=== PATIENT | female | born 1955 | race Caucasian/White ===

== ENCOUNTER 2017-08-25 01:20 | Inpatient (IN) | payer OTHER ==
[2017-08-25] VITALS (9 sets, daily range): BP systolic 109–171; BP diastolic 67–82; PULSE 73–94; RESP 16–18; TEMP 97.5–98.9; O2SAT 93–99
[~2017-08-25] VITALS: Ht 165.1 cm; Wt 49.5 kg
[2017-08-25] MEDS ORDERED: SIMV20TA PO (01:51)
[2017-08-25] MEDS ORDERED: MORPHINE SULFATE 2 MG/ML INJ IV PUSH ONE ×2 (02:00→02:30)
--- NOTE | 2017-08-25 02:23 | RADRPT ---
EXAM DATE/TIME: 08/25/2017 02:07 [facility] COMPARISON: No previous studies available for comparison. INDICATIONS : Left shoulder pain post fall MEDICAL HISTORY : None. SURGICAL HISTORY : None. ENCOUNTER: Initial ACUITY: 1 day PAIN SCORE: 8/10 LOCATION: Left Shoulder FINDINGS: There is a angulated oblique fracture through the proximal shaft of the humerus with lateral angulati on of the distal fracture fragment. The humeral head remains normal in alignment with the glenoid on both the frontal and transscapular Y-view. The visualized left upper ribs are intact. CONCLUSION: Angulated fracture of proximal shaft of the humerus. Jeremías Ramirez MD on August 25, 2017 at 2:21 Board Certified Radiologist. This report was verified electronically.
--- NOTE | 2017-08-25 02:24 | PD ---
HPI Chief Complaint: Fall Time Seen by Provider: 01:45 Travel History International Travel<30 days: No Contact w/Intl Traveler<30days: No Traveled to known affect area: No History of Present Illness HPI 62-year-old female here for evaluation of severe left shoulder pain after a fall. Patient admits to drinking alcohol tonight. She drinks alcohol a few days a week. She is unsure exactly how she fell. She denies pain anywhere else. She denies head or neck pain. No pain in any other joints or extremity. Left shoulder pain is severe, constant, worse with movement. No paresthesias. PFSH Past Medical History High Cholesterol: Yes Diminished Hearing: No Tetanus Vaccination: Unknown Influenza Vaccination: Yes ?: Not Menopausal: Yes Dilation and Curettage (D&C): Yes Social History Alcohol Use: Yes (on the weekends) Tobacco Use: Yes Substance Use: No Allergies-Medications (Allergen,Severity, Reaction): Coded Allergies: No Known Drug Allergies (Verified Allergy, Unknown, 08/25/17) Reported Meds & Prescriptions Reported Meds & Active Scripts Active Reported Simvastatin 20 Mg Tab 20 Mg PO DAILY Review of Systems Except as stated in HPI: all other systems reviewed are Neg Physical Exam Narrative GENERAL: Well-developed, well-nourished, awake, alert, no apparent distress. SKIN: Focused skin assessment warm/dry. Ecchymosis to left lateral/proximal arm /shoulder. No lacerations or open wounds. HEAD: Atraumatic. Normocephalic. EYES: Pupils equal and round. No scleral icterus. No injection or drainage. ENT: No nasal bleeding or discharge. Mucous membranes pink and moist. NECK: Trachea midline. No JVD. No midline vertebral step-off or tenderness per CARDIOVASCULAR: Regular rate and rhythm. Bilateral distal radial pulses are brisk and equal. RESPIRATORY: No accessory muscle use. Clear to auscultation. Breath sounds equal bilaterally. GASTROINTESTINAL: Abdomen soft, non-tender, nondistended. MUSCULOSKELETAL: Left shoulder with skin exam as above with diffuse edema and tenderness, limited range of motion secondary to pain. No clavicular step-off or tenderness. The rest of her joints and extremities are without deformity, without tenderness, with normal range of motion. The left upper extremity is neurovascularly intact in all compartments are supple. NEUROLOGICAL: Awake and alert. No obvious cranial nerve deficits. Motor grossly within normal limits. Normal speech. PSYCHIATRIC: Appropriate mood and affect; insight and judgment normal. Data Data Last Documented VS Vital Signs Date Time Temp Pulse Resp B/P (MAP) Pulse Ox O2 Delivery O2 Flow Rate FiO2 08/25/17 02:41 84 18 110/69 (83) 99 Room Air 08/25/17 01:29 97.5 Orders Orders Humerus (Min 2vws) (08/25/17 ) Shoulder, Complete (>2vws) (08/25/17 ) Ct Brain W/O Iv Contrast(Rout) (08/25/17 ) Ct Cerv Spine W/O Contrast (08/25/17 ) Morphine Inj (Morphine Inj) (08/25/17 02:00) Morphine Inj (Morphine Inj) (08/25/17 02:30) Basic Metabolic Panel (Bmp) (08/25/17 02:28) Complete Blood Count With Diff (08/25/17 02:28) Prothrombin Time / Inr (Pt) (08/25/17 02:28) Act Partial Throm Time (Ptt) (08/25/17 02:28) Iv Access Insert/Monitor (08/25/17 02:28) Ecg Monitoring (08/25/17 02:28) Oximetry (08/25/17 02:28) Sodium Chloride 0.9% Flush (Ns Flush) (08/25/17 02:30) Sodium Chlor 0.9% 1000 Ml Inj (Ns 1000 M (08/25/17 02:30) Sling And Swathe (08/25/17 ) Consult Orthopedic (08/25/17 ) (Hub Use Only)Inp Phy Cons/Ref (08/25/17 ) Labs Laboratory Tests Test 08/25/17 02:40 White Blood Count 12.5 TH/MM3 Red Blood Count 4.58 MIL/MM3 Hemoglobin 14.4 GM/DL Hematocrit 41.3 % Mean Corpuscular Volume 90.2 FL Mean Corpuscular Hemoglobin 31.4 PG Mean Corpuscular Hemoglobin Concent 34.8 % Red Cell Distribution Width 14.5 % Platelet Count 339 TH/MM3 Mean Platelet Volume 8.1 FL Neutrophils (%) (Auto) 73.4 % Lymphocytes (%) (Auto) 19.4 % Monocytes (%) (Auto) 4.3 % Eosinophils (%) (Auto) 1.7 % Basophils (%) (Auto) 1.2 % Neutrophils # (Auto) 9.1 TH/MM3 Lymphocytes # (Auto) 2.4 TH/MM3 Monocytes # (Auto) 0.5 TH/MM3 Eosinophils # (Auto) 0.2 TH/MM3 Basophils # (Auto) 0.2 TH/MM3 CBC Comment AUTO DIFF Differential Comment AUTO DIFF CONFIRMED Platelet Estimate NORMAL Platelet Morphology Comment ENLARGED Prothrombin Time 10.0 SEC Prothromb Time International Ratio 1.0 RATIO Activated Partial Thromboplast Time 21.2 SEC Blood Urea Nitrogen 9 MG/DL Creatinine 0.69 MG/DL Random Glucose 128 MG/DL Calcium Level 8.8 MG/DL Sodium Level 142 MEQ/L Potassium Level 4.0 MEQ/L Chloride Level 107 MEQ/L Carbon Dioxide Level 29.8 MEQ/L Anion Gap 5 MEQ/L Estimat Glomerular Filtration Rate 86 ML/MIN MDM Medical Decision Making Medical Screen Exam Complete: Yes Emergency Medical Condition: Yes Differential Diagnosis Proximal humerus fracture, shoulder contusion, dislocation, intracranial trauma , cervical spine injury Narrative Course Vital signs reviewed. Left shoulder and humerus x-rays show an angulated comminuted proximal humerus fracture. Case discussed with the on-call orthopedist Dr. Reina. The patient will be admitted to the medical service and he will evaluate her in the morning. CT head shows no acute intracranial abnormality, normal brain. CT cervical spine: CONCLUSION: 1. No evidence of compression deformity or spondylolisthesis. 2. Advanced discogenic degenerative changes at C6-7 and unilateral prominent hypertrophic changes in the right facets of mid and lower cervical spine. 3. Tonsillolith on the right side suggest chronic inflammatory process. Case discussed with hospitalist Dr. Ramirez who will admit the patient to her service. Diagnosis Primary Impression: Closed fracture of left proximal humerus Qualified Codes: S42.292A - Other displaced fracture of upper end of left humerus, initial encounter for closed fracture Admitting Information Admitting Physician Requests: Admit Jordon Espinoza MD Aug 25, 2017 02:24
--- NOTE | 2017-08-25 02:25 | RADRPT ---
EXAM DATE/TIME: 08/25/2017 02:10 [facility] COMPARISON: No previous studies available for comparison. INDICATIONS : Pain to left shoulder post fall tonight. MEDICAL HISTORY : None. SURGICAL HISTORY : None. ENCOUNTER: Initial ACUITY: 1 day PAIN SCORE: 8/10 LOCATION: Left Humerus FINDINGS: There is an angulated fracture of the proximal shaft of the humerus with moderate lateral angulation of the distal fracture fragment. The fracture line appears to be partially spiral. Possible linear extension to the base of the greater tuberosity. The no radiopaque foreign bodies. Visualized left lateral ribs are intact. CONCLUSION: Oblique, angulated fracture of the proximal humerus. Jeremías Ramirez MD on August 25, 2017 at 2:22 Board Certified Radiologist. This report was verified electronically.
--- NOTE | 2017-08-25 02:26 | RADRPT ---
EXAM DATE/TIME: 08/25/2017 02:01 [facility] COMPARISON: No previous studies available for comparison. INDICATIONS : Trauma; fall. RADIATION DOSE: 56.35 CTDIvol (mGy) MEDICAL HISTORY : Asthma SURGICAL HISTORY : D&C ENCOUNTER: Initial ACUITY: 1 day PAIN SCALE: 5/10 LOCATION: cranial TECHNIQUE: Multiple contiguous axial images were obtained of the head. Using automated exposure control and adj ustment of the mA and/or kV according to patient size, radiation dose was kept as low as reasonably a chievable to obtain optimal diagnostic quality images. DICOM format image data is available electro nically for review and comparison. FINDINGS: CEREBRUM: The ventricles are normal for age. No evidence of midline shift, mass lesion, hemorrhage or acute in farction. No extra-axial fluid collections are seen. POSTERIOR FOSSA: The cerebellum and brainstem are intact. The 4th ventricle is midline. The cerebellopontine angle i s unremarkable. EXTRACRANIAL: The visualized portion of the orbits is intact. SKULL: The calvaria is intact. No evidence of skull fracture. CONCLUSION: 1. No acute findings in the brain. Jeremías Ramirez MD on August 25, 2017 at 2:24 Board Certified Radiologist. This report was verified electronically.
[2017-08-25] MEDS ORDERED: SODIUM CHLORIDE 0.9% FLUSH 10 ML FLUSH IV FLUSH PRN ×2 (02:30→04:00)
[2017-08-25] MEDS ORDERED: SODIUM CHLOR 0.9% 1000 ML INJ 1,000 ML IV ONE (02:30)
[2017-08-25 02:52] LABS: AUTOMATED NEUTROPHIL # 9.1 TH/MM3 (1.8-7.7); BASOPHIL # 0.2 TH/MM3 (0-0.2); BASOPHIL % 1.2 % (0.0-2.0); EOSINOPHIL # 0.2 TH/MM3 (0-0.4); EOSINOPHIL % 1.7 % (0.0-4.0); HEMATOCRIT 41.3 % (35.0-46.0); HEMOGLOBIN 14.4 GM/DL (11.6-15.3); LYMPH % 19.4 % (9.0-44.0); LYMPHOCYTE # 2.4 TH/MM3 (1.0-4.8); MEAN CELL VOLUME 90.2 FL (80.0-100.0); MEAN CORPUSCULAR HEMOGLOBIN 31.4 PG (27.0-34.0); MEAN CORPUSCULAR HGB CONC 34.8 % (32.0-36.0); MEAN PLATELET VOLUME 8.1 FL (7.0-11.0); MONO % 4.3 % (0.0-8.0); MONOCYTE # 0.5 TH/MM3 (0-0.9); NEUT % 73.4 % (16.0-70.0); PLATELET COUNT 339 TH/MM3 (150-450); RED BLOOD COUNT 4.58 MIL/MM3 (4.00-5.30); RED CELL DISTRIBUTION WIDTH 14.5 % (11.6-17.2); WHITE BLOOD COUNT 12.5 TH/MM3 (4.0-11.0)
[2017-08-25 03:09] LABS: BICARBONATE 29.8 MEQ/L (21.0-32.0); CALCIUM 8.8 MG/DL (8.5-10.1); CREATININE 0.69 MG/DL (0.50-1.00)
--- NOTE | 2017-08-25 03:43 | RADRPT ---
EXAM DATE/TIME: 08/25/2017 02:01 [facility] COMPARISON: No previous studies available for comparison. INDICATIONS : Trauma; fall. RADIATION DOSE: 28.35 CTDIvol (mGy) MEDICAL HISTORY : Asthma SURGICAL HISTORY : D & C ENCOUNTER: Initial ACUITY: 1 day PAIN SCALE: 5/10 LOCATION: neck TECHNIQUE: Volumetric scanning of the cervical spine was performed. Multiplanar reconstructions in the sagittal, coronal and oblique axial planes were performed. Using automated exposure control and adjustment o f the mA and/or kV according to patient size, radiation dose was kept as low as reasonably achievable to obtain optimal diagnostic quality images. DICOM format image data is available electronically f or review and comparison. FINDINGS: There is straightening of the upper cervical lordosis without evidence of compression deformity or sp ondylolisthesis. There is advanced discogenic degenerative changes at the C5-6 level with marked janelle rowing of the interspace, sclerosis of the endplates, and prominent osteophytes both anterior and pos terior. Lesser severe discogenic degenerative changes are present at C6-7. There is advanced arthro heike of the facet joints on the right side from C3 through C5. No evidence of locked or perched fac ets. The atlantoaxial articulation is intact. There is a 7 mm calcification located within the righ t tonsillar fossa suggesting a tonsillolith related to chronic inflammatory process. C2-C3: No fracture seen. The neural foramen are patent. C3-C4: No fracture seen. Moderate severity right-sided neural foraminal stenosis. C4-C5: No fracture seen. Moderate severity right-sided neural foraminal stenosis C5-C6: No fracture seen. Severe right-sided bony neural foraminal stenosis. C6-C7: No fracture seen. Moderate severity bilateral bony neural foraminal stenosis. C7-T1: No fracture seen. The neural foramen are patent. CONCLUSION: 1. No evidence of compression deformity or spondylolisthesis. 2. Advanced discogenic degenerative changes at C6-7 and unilateral prominent hypertrophic changes in the right facets of mid and lower cervical spine. 3. Tonsillolith on the right side suggest chronic inflammatory process. Jeremías Ramirez MD on August 25, 2017 at 3:34 Board Certified Radiologist. This report was verified electronically.
[2017-08-25] MEDS ORDERED: MAGNESIUM HYDROXIDE SUSP 30 ML CUP PO PRN (04:00)
[2017-08-25] MEDS ORDERED: SENNOSIDES 8.6 MG TAB PO PRN (04:00)
[2017-08-25] MEDS ORDERED: ACETAMINOPHEN 325 MG TAB PO PRN (04:00)
[2017-08-25] MEDS ORDERED: ONDANSETRON HCL 4 MG/2 ML VIAL IVP PRN (04:00)
[2017-08-25] MEDS ORDERED: LACTULOSE SYRUP 20 GM/30 ML CUP PO PRN (04:00)
[2017-08-25] MEDS ORDERED: BISACODYL 10 MG SUPP RECTAL PRN (04:00)
[2017-08-25] MEDS: SODIUM CHLOR 0.9% 1000 ML INJ 1,000 ML IV SCH ×2 (04:11→14:41)
--- NOTE | 2017-08-25 04:35 | HHI.HP ---
[facility] Service [facility] Primary Care Physician Mikie Ta MD Admission Diagnosis Closed left proximal humerus fracture, fall Diagnoses: (1) Fall Diagnosis: Principal (2) Closed fracture of left proximal humerus Diagnosis: Principal (3) Dehydration Diagnosis: Principal (4) Tobacco abuse Diagnosis: Principal Travel History International Travel<30 Days: No Contact w/Intl Traveler <30 Da: No Traveled to Known Affected Are: No History of Present Illness This is a 62-year-old female with a PMH of Hyperlipidemia and Tobacco Abuse who was brought to the ER after a fall with complaints of left shoulder pain. Patient is unsure of how she fell, cannot recall exact details. Admits to drinking tonight. No LOC or head trauma reported. Reports severe, constant, sharp shoulder pain, 10/10, worse w/ movement. No other injuries reported. On arrival, BP 109/67, HR 81, O2 sat 99% on RA, Afebrile. WBC 12.5. Chemistry essentially unremarkable except for GFR 86. INR 1.0. CT Head negative. CT C- spine with no acute fracture. Humerus X-ray oblique, aggravated fracture proximal humerus. Dr. Reina consulted by ER physician, plan is for surgical intervention. Review of Systems Except as stated in HPI: all other systems reviewed are Neg ROS: 14 point review of systems otherwise negative. Past Family Social History Past Medical History PMH: Hyperlipidemia and Tobacco Abuse Past Surgical History PAST SURGICAL HISTORY: Left Ankle Surgery, D&C Allergies: Coded Allergies: No Known Drug Allergies (Verified Allergy, Unknown, 08/25/17) Family History PAST FAMILY HISTORY: Reviewed. No h/o DM or CAD Social History PAST SOCIAL HISTORY: Occasional alcohol. Positive for tobacco. Negative for drugs. Physical Exam Vital Signs Vital Signs Date Time Temp Pulse Resp B/P (MAP) Pulse Ox O2 Delivery O2 Flow Rate FiO2 08/25/17 02:41 84 18 110/69 (83) 99 Room Air 08/25/17 01:50 84 18 171/75 (107) 94 Room Air 08/25/17 01:43 99 Room Air 08/25/17 01:29 97.5 81 16 109/67 (81) 99 Physical Exam PE: GENERAL: Very pleasant middle-aged white female in no acute distress. HEENT: PERRLA, EOMI. No scleral icterus or conjunctival pallor. No lid lag or facial droop. CARDIOVASCULAR: Regular rate and rhythm. No obvious murmurs to auscultation. No chest tenderness to palpation. RESPIRATORY: No obvious rhonchi or wheezing. Clear to auscultation. Breath sounds equal bilaterally. GASTROINTESTINAL: Abdomen soft, non-tender, nondistended. BS normal. MUSCULOSKELETAL: Extremities without clubbing, cyanosis, or edema. No obvious deformities. LUE in sling. Pulses intact. NEUROLOGICAL: Awake, alert and oriented x4. No focal neurologic deficits. Moving both upper and lower extremities spontaneously. Laboratory Laboratory Tests Test 08/25/17 02:40 White Blood Count 12.5 Red Blood Count 4.58 Hemoglobin 14.4 Hematocrit 41.3 Mean Corpuscular Volume 90.2 Mean Corpuscular Hemoglobin 31.4 Mean Corpuscular Hemoglobin Concent 34.8 Red Cell Distribution Width 14.5 Platelet Count 339 Mean Platelet Volume 8.1 Neutrophils (%) (Auto) 73.4 Lymphocytes (%) (Auto) 19.4 Monocytes (%) (Auto) 4.3 Eosinophils (%) (Auto) 1.7 Basophils (%) (Auto) 1.2 Neutrophils # (Auto) 9.1 Lymphocytes # (Auto) 2.4 Monocytes # (Auto) 0.5 Eosinophils # (Auto) 0.2 Basophils # (Auto) 0.2 CBC Comment AUTO DIFF Differential Comment AUTO DIFF CONFIRMED Platelet Estimate NORMAL Platelet Morphology Comment ENLARGED Prothrombin Time 10.0 Prothromb Time International Ratio 1.0 Activated Partial Thromboplast Time 21.2 Blood Urea Nitrogen 9 Creatinine 0.69 Random Glucose 128 Calcium Level 8.8 Sodium Level 142 Potassium Level 4.0 Chloride Level 107 Carbon Dioxide Level 29.8 Anion Gap 5 Estimat Glomerular Filtration Rate 86 Result Diagram: 08/25/1723908/25/17239 Caprini VTE Risk Assessment Caprini VTE Risk Assessment: Mod/High Risk (score >= 2) Caprini Risk Assessment Model Point Value = 1 Point Value = 2 Point Value = 3 Point Value = 5 Age 41-60 Minor surgery BMI > 25 kg/m2 Swollen legs Varicose veins or History of unexplained or recurrent spontaneous Oral contraceptives or hormone replacement Sepsis (< 1 month) Serious lung disease, including pneumonia (< 1 month) Abnormal pulmonary function Acute myocardial infarction Congestive heart failure (< 1 month) History of inflammatory bowel disease Medical patient at bed rest Age 61-74 Arthroscopic surgery Major open surgery (> 45 min) Laparoscopic surgery (> 45 min) Malignancy Confined to bed (> 72 hours) Immobilizing plaster cast Central venous access Age >= 75 History of VTE Family history of VTE Factor V Leiden Prothrombin [id number] Lupus anticoagulant Anticardiolipin antibodies Elevated serum homocysteine Heparin-induced thrombocytopenia Other congenital or acquired thrombophilia Stroke (< 1 month) Elective arthroplasty Hip, pelvis, or leg fracture Acute spinal cord injury (< 1 month) Prophylaxis Regimen Total Risk Factor Score Risk Level Prophylaxis Regimen 0-1 Low Early ambulation 2 Moderate Order ONE of the following: *Sequential Compression Device (SCD) *Heparin 5000 units SQ BID 3-4 Higher Order ONE of the following medications: *Heparin 5000 units SQ TID *Enoxaparin/Lovenox 40 mg SQ daily (WT < 150 kg, CrCl > 30 mL/min) *Enoxaparin/Lovenox 30 mg SQ daily (WT < 150 kg, CrCl > 10-29 mL/min) *Enoxaparin/Lovenox 30 mg SQ BID (WT < 150 kg, CrCl > 30 mL/min) AND/OR *Sequential Compression Device (SCD) 5 or more Highest Order ONE of the following medications: *Heparin 5000 units SQ TID (Preferred with Epidurals) *Enoxaparin/Lovenox 40 mg SQ daily (WT < 150 kg, CrCl > 30 mL/min) *Enoxaparin/Lovenox 30 mg SQ daily (WT < 150 kg, CrCl > 10-29 mL/min) *Enoxaparin/Lovenox 30 mg SQ BID (WT < 150 kg, CrCl > 30 mL/min) AND *Sequential Compression Device (SCD) Assessment and Plan Problem List: (1) Fall ICD Code: W19.XXXA - Unspecified fall, initial encounter (2) Closed fracture of left proximal humerus ICD Code: S42.202A - Unspecified fracture of upper end of left humerus, initial encounter for closed fracture Status: Acute (3) Dehydration ICD Code: E86.0 - Dehydration (4) Tobacco abuse ICD Code: Z72.0 - Tobacco use Assessment and Plan A/P: 1. Fall: s/p fall this evening, pt cannot recall events. CT Head w/ no acute findings, CT C-Spine negative for acute fracture, images reviewed by me. 2. Left Prox Humerus Fx: X-ray w/ oblique, angulated left proximal humerus fracture, images reviewed by me. Dr. Reina consulted, plan is for surgical intervention. NPO, IVF, analgesics/antiemetics as needed. Pre-op labs reviewed by me, essentially unremarkable. 3. Dehydration: GFR 86. IVF for hydration, check U/a, repeat labs in am. 4. Tobacco Abuse: Pt counselled. NicoDerm prn if needed. 5. DVT Prophylaxis: Anticoagulation postop 6. Social work for DC planning as needed. 7. Case discussed at length with ER physician, lab/records/imaging reviewed by me. Physician Certification 2 Midnight Certification Type: Admission for Inpatient Services Order for Inpatient Services The services are ordered in accordance with Medicare regulations or non- Medicare payer requirements, as applicable. In the case of services not specified as inpatient-only, they are appropriately provided as inpatient services in accordance with the 2-midnight benchmark. Estimated LOS (days): 2 days is the estimated time the patient will need to remain in the hospital, assuming treatment plan goals are met and no additional complications. Post-Hospital Plan: Not yet determined Problem Qualifiers (1) Closed fracture of left proximal humerus: Qualified Codes: S42.292A - Other displaced fracture of upper end of left humerus, initial encounter for closed fracture Arleth Ramirez MD Aug 25, 2017 04:35
[2017-08-25] MEDS: MORPHINE SULFATE 2 MG/ML INJ IV PUSH PRN ×2 (08:07→22:34)
[2017-08-25] MEDS: SODIUM CHLORIDE 0.9% FLUSH 10 ML FLUSH IV FLUSH SCH ×2 (09:00→21:00)
[2017-08-25] MEDS ORDERED: PRAVASTATIN SOD 40 MG TAB PO SCH (09:00)
[2017-08-25] MEDS: DOCUSATE SODIUM 50 MG/SENNA 8.6 MG TAB PO SCH ×2 (09:25→21:00)
[2017-08-25] MEDS: ACETAMINOPHEN/HYDROcodone 325 MG/5 MG TAB PO PRN ×4 (09:26→21:37)
[2017-08-25] MEDS ORDERED: LACTATED RINGER'S 1000 ML IV PRN (22:45)
[2017-08-25] MEDS ORDERED: SODIUM CHLORID 0.9% 500 ML IV PRN (22:45)
[2017-08-25] MEDS ORDERED: POVIDONE IODINE 5% (ANTISEPSIS KIT) 4 APPLICATIONS EACH NARE PRN (22:45)
[2017-08-25] MEDS ORDERED: METOPROLOL TARTRATE 25 MG TAB PO PRN (22:45)
[2017-08-25] MEDS ORDERED: CHLORHEXIDINE GLUCONATE 2 % 1 PACK (2 CLOTHS) TOPICAL PRN (22:45)
[2017-08-26 00:15] VITALS: BP 136/77; PULSE 75; RESP 17; TEMP 97.4; O2SAT 95
[2017-08-26 04:32] VITALS: BP 144/86; PULSE 70; RESP 17; TEMP 97.4; O2SAT 96
[2017-08-26] MEDS ORDERED: HYDR-3583 PO (06:41)
--- NOTE | 2017-08-26 06:45 | PD.ORT.PN ---
Subjective Subjective Remarks s/p fall at home left shoulder pain. no other complaints. Objective Vitals Vital Signs Date Time Temp Pulse Resp B/P (MAP) Pulse Ox O2 Delivery O2 Flow Rate FiO2 08/26/17 04:32 97.4 70 17 144/86 (105) 96 08/26/17 00:15 97.4 75 17 136/77 (96) 95 08/25/17 19:46 98.0 73 16 154/80 (104) 96 08/25/17 16:09 98.0 85 18 138/73 (94) 93 08/25/17 14:15 98.8 94 18 144/82 (102) 94 08/25/17 09:07 98.9 89 18 141/74 (96) 96 I/O 08/25/17 08/25/17 08/25/17 08/26/17 08/26/17 08/26/17 07:00 15:00 23:00 07:00 15:00 23:00 Intake Total 1000 ml 1000 ml 240 ml 0 ml Balance 1000 ml 1000 ml 240 ml 0 ml Intake Oral 240 ml 0 ml IV Total 1000 ml 1000 ml # Voids 1 0 # Bowel Movements 0 0 Result Diagram: 08/25/17 0240 08/25/17 0240 Objective Remarks LUE: +sling/swathe. full sensation to median/ulnar nerve distribution. full extension of wrist/fingers. pain in shoulder with motion. ring present on left hand that is unable to be removed due to swelling. Assessment & Plan Assessment and Plan 1) Left Proximal Humerus Fx -options discussed with patient -plan for nonop treatment -NWB -maintain sling/swathe at all times -will have [employer] cut off ring this morning of left hand -follow up in office in 1 week -script on chart -ortho cleared for DC -official consult to follow Duncan Do/First Jo-Ann THOMAS Aug 26, 2017 06:45
[2017-08-26 07:51] VITALS: BP 154/84; PULSE 75; RESP 17; TEMP 98.5; O2SAT 96
[2017-08-26 09:31] LABS: AUTOMATED NEUTROPHIL # 11.2 TH/MM3 (1.8-7.7); BASOPHIL # 0.1 TH/MM3 (0-0.2); BASOPHIL % 0.4 % (0.0-2.0); EOSINOPHIL # 0.1 TH/MM3 (0-0.4); EOSINOPHIL % 0.7 % (0.0-4.0); HEMATOCRIT 38.2 % (35.0-46.0); HEMOGLOBIN 12.9 GM/DL (11.6-15.3); LYMPH % 10.6 % (9.0-44.0); LYMPHOCYTE # 1.5 TH/MM3 (1.0-4.8); MEAN CELL VOLUME 90.5 FL (80.0-100.0); MEAN CORPUSCULAR HEMOGLOBIN 30.5 PG (27.0-34.0); MEAN CORPUSCULAR HGB CONC 33.7 % (32.0-36.0); MEAN PLATELET VOLUME 7.9 FL (7.0-11.0); MONO % 8.2 % (0.0-8.0); MONOCYTE # 1.1 TH/MM3 (0-0.9); NEUT % 80.1 % (16.0-70.0); PLATELET COUNT 296 TH/MM3 (150-450); RED BLOOD COUNT 4.22 MIL/MM3 (4.00-5.30); RED CELL DISTRIBUTION WIDTH 14.5 % (11.6-17.2)
[2017-08-26] MEDS: SODIUM CHLOR 0.9% 1000 ML INJ 1,000 ML IV SCH (09:55)
[2017-08-26] MEDS ORDERED: INFLUENZA VIRUS VACCINE (QUADRIVALENT) 0.5 ML SYR IM ONE (10:00)
[2017-08-26] MEDS ORDERED: PNEUMOCOCCAL POLYVALENT INJ 25 MCG/0.5 ML SYR IM ONE (10:00)
[2017-08-26] MEDS: DOCUSATE SODIUM 50 MG/SENNA 8.6 MG TAB PO SCH (10:09)
[2017-08-26] MEDS: ACETAMINOPHEN/HYDROcodone 325 MG/5 MG TAB PO PRN ×2 (10:10→14:14)
[2017-08-26] MEDS: SODIUM CHLORIDE 0.9% FLUSH 10 ML FLUSH IV FLUSH SCH (10:11)
[2017-08-26 10:12] LABS: ALBUMIN 3.2 GM/DL (3.4-5.0); AST (GOT) 19 U/L (15-37); BLOOD UREA NITROGEN 8 MG/DL (7-18); CALCIUM 8.4 MG/DL (8.5-10.1); CHLORIDE 105 MEQ/L (98-107); CREATININE 0.56 MG/DL (0.50-1.00); GLOMERULAR FILTRATION RATE 110 ML/MIN (>89); GLUCOSE,RANDOM 71 MG/DL (74-106); SODIUM (NA) 140 MEQ/L (136-145)
[2017-08-26 10:13] LABS: ALT (GPT) 16 U/L (10-53)
[2017-08-26 10:16] LABS: ALKALINE PHOSPHATASE 64 U/L (45-117); TOTAL BILIRUBIN ADULT 0.7 MG/DL (0.2-1.0); TOTAL PROTEIN 6.8 GM/DL (6.4-8.2)
[2017-08-26 11:39] VITALS: BP 140/72; PULSE 82; RESP 17; TEMP 99.1; O2SAT 97
--- NOTE | 2017-08-26 13:37 | EKG ---
Date Performed: 08/25/2017 Time Performed: 22:44:21 PTAGE: 62 years EKG: Sinus rhythm POSSIBLE LEFT ATRIAL ENLARGEMENT ANTEROSEPTAL MYOCARDIAL INFARCTION , OF INDETERMINATE AGE ABNORMAL ECG NO PREVIOUS TRACING DOCTOR: Michael Gusman Interpretating Date/Time 08/26/2017 13:34:54
--- NOTE | 2017-08-26 13:59 | MB ---
cc: Servando Foley MD DATE OF CONSULT: 08/26/2017 REASON FOR CONSULTATION: Left proximal humerus fracture. CONSULTING PHYSICIAN: Arleth Ramirez MD HISTORY: Zoe is a 62-year-old female who had a fall. She describes a mechanical fall. She had been drinking alcohol. She denies dizziness, syncope, loss of consciousness. She feel and landed on her left arm. She had immediate left shoulder pain. She presented to the emergency room where x-rays revealed a mildly displaced left proximal humerus fracture. She is currently awake and alert on the orthopedic floor. She only complaint is her left arm. Pain is worse with movement. Pain is improved with rest. PAST MEDICAL HISTORY: Only listed as high cholesterol and tobacco use. SURGERIES: Left ankle surgery, D and C. ALLERGIES: NO KNOWN DRUG ALLERGIES. MEDICATIONS: Simvastatin. FAMILY HISTORY: Noncontributory. Patient denies any familial medical problems. SOCIAL HISTORY: Patient smokes approximately half a pack a day. She drinks alcohol occasionally. She denies drug use. REVIEW OF SYSTEMS: Patient denies headache, visual changes, neck pain, chest pain, shortness of breath, abdominal pain, nausea, vomiting, recent weight loss, fevers or chills, numbness or tenderness of extremities. She complains of left shoulder pain. Pain is worse with movement. PHYSICAL EXAMINATION: Patient is a thin 62-year-old female. She is awake and alert. She appears mildly uncomfortable but is in no acute distress. VITAL SIGNS: Temperature 97.4, pulse 70, respirations 17, blood pressure 144/86, O2 sats 96% on room air. HEAD: Patient is normocephalic. Pupils are equal. NECK: Soft, nontender. Trachea is midline. ABDOMEN: Soft, nontender, nondistended. EXTREMITIES: Extremities show left arm reveals tenderness to palpation around her shoulder. She has pain with any shoulder motion. She has no pain with elbow, wrist or finger motion. She has intact sensation to all fingers. She has good cap refill all fingers. Skin is intact. She has mild swelling of the arm and fingers. Radial pulse is palpable. Examination of right arm reveals no pain with shoulder, elbow, wrist motion. Skin is intact. Radial pulses are palpable. Sensation is intact in all finger. Examination of bilateral lower extremities reveals no significant pain with hip, knee or ankle motion. Skin is intact. On both feet, dorsalis pedis pulses are palpable. LABORATORIES: The patient has a white blood cell count of 12.5, hemoglobin of 14.4 and hematocrit of 41.3. INR is 1.0. BUN is 9 and creatinine is 0.69. X-RAYS: X-rays of left shoulder were reviewed. X-rays reveal a minimally displaced left proximal humerus fracture. The glenohumeral joint is reduced. Alignment is near atomic. IMPRESSION: 1. Tobacco dependence. 2. Left proximal humerus fracture. PLAN: Treatment options were discussed with patient. I discussed surgical and nonsurgical options. I explained that currently the fracture is well aligned. Fracture would be expected to heal and have good function with nonsurgical treatment. Surgical options would include open reduction internal fixation with placement of a plate and screws. The risks and benefits of each were explained in depth with patient. After discussion of the risks and benefits of surgical and nonsurgical options, patient wishes to proceed with nonoperative treatment. Given the minimal displacement of the fracture, I feel that nonoperative treatment is a very reasonable option. I asked the patient to continue with a sling and swathe. She will follow up in 1 week for repeat x-rays of left shoulder. If fracture displaces, she may need surgical intervention. All questions were answered. A mid-level provider in my office, nurse practitioner or PA, may see this patient on a follow-up basis and continue to implement the objective of this plan including: Starting or adjusting medications, injections of muscle, tendon, bursa or joints, cast application, orthotic or brace application, physical therapy, further radiographic studies including x-ray, MRI, CT, ultrasounds or bone scan, vascular studies, neurologic studies, or other specialist consultations, and proceeding with surgical management as appropriate. Servando MD DANDRE Marie/ROLDAN , 07:37 AM , 08:19 AM
--- NOTE | 2017-08-26 15:23 | HHI.PR ---
Subjective Remarks Patient seen this morning. She says that pain in left shoulder continues. Feels like anytime she moves she has excruciating pain in the left shoulder. Denies any chest pain or shortness of breath. Objective Vital Signs Date Time Temp Pulse Resp B/P (MAP) Pulse Ox O2 Delivery O2 Flow Rate FiO2 08/26/17 11:39 99.1 82 17 140/72 (94) 97 08/26/17 07:51 98.5 75 17 154/84 (107) 96 08/26/17 04:32 97.4 70 17 144/86 (105) 96 08/26/17 00:15 97.4 75 17 136/77 (96) 95 08/25/17 19:46 98.0 73 16 154/80 (104) 96 08/25/17 16:09 98.0 85 18 138/73 (94) 93 I/O 08/25/17 08/25/17 08/25/17 08/26/17 08/26/17 08/26/17 07:00 15:00 23:00 07:00 15:00 23:00 Intake Total 1000 ml 1000 ml 240 ml 0 ml Balance 1000 ml 1000 ml 240 ml 0 ml Intake Oral 240 ml 0 ml IV Total 1000 ml 1000 ml # Voids 1 0 # Bowel Movements 0 0 Result Diagram: 08/26/1791208/26/17912 Objective Remarks GENERAL: Patient sitting up in bed. Appears comfortable. SKIN: Warm and dry. HEAD: Normocephalic. EYES: No scleral icterus. No injection or drainage. NECK: Supple, trachea midline. No JVD. CARDIOVASCULAR: Regular rate and rhythm without murmurs, gallops, or rubs. RESPIRATORY: Breath sounds equal bilaterally. No accessory muscle use. GASTROINTESTINAL: Abdomen soft, non-tender, nondistended. MUSCULOSKELETAL: No cyanosis, or edema. Left arm in sling. BACK: Nontender without obvious deformity. No CVA tenderness. A/P Assessment and Plan //Fall: s/p fall this evening, pt cannot recall events, but she denies loss of consciousness. CT Head w/ no acute findings, CT C-Spine negative for acute fracture, images reviewed by me. She reports drinking the night of fall. // Left Prox Humerus Fx: X-ray w/ oblique, angulated left proximal humerus fracture, images reviewed by me. Dr. Reina consulted, plan is for surgical intervention. NPO, IVF, analgesics/antiemetics as needed. Pre-op labs reviewed by me, essentially unremarkable. = Nonsurgical intervention as per orthopedics. Pending PT and OT evaluation. Discussed with nursing, nurse embedded case manager at [facility]. // Dehydration: GFR 86. IVF for hydration, check U/a, repeat labs in am. Improved. //Tobacco Abuse: Pt counselled. NicoDerm prn if needed. //Leukocytosis of 14. Likely secondary to pain. No signs of infection. // DVT Prophylaxis: Anticoagulation postop Discharge Planning Discharge home. Follow-up with orthopedics as outpatient. Daniele Herrera MD Aug 26, 2017 15:23
--- NOTE | 2017-08-26 15:27 | HHI.DS ---
Discharge Summary Admission Date Aug 25, 2017 at 03:57 Discharge Date: Aug 26, 2017 Admitting Diagnosis Closed left proximal humerus fracture, fall (1) Fall ICD Code: W19.XXXA - Unspecified fall, initial encounter (2) Closed fracture of left proximal humerus ICD Code: S42.202A - Unspecified fracture of upper end of left humerus, initial encounter for closed fracture Status: Acute (3) Dehydration ICD Code: E86.0 - Dehydration (4) Tobacco abuse ICD Code: Z72.0 - Tobacco use Procedures No invasive treatments. Brief History - From Admission This is a 62-year-old female with a PMH of Hyperlipidemia and Tobacco Abuse who was brought to the ER after a fall with complaints of left shoulder pain. Patient is unsure of how she fell, cannot recall exact details. Admits to drinking tonight. No LOC or head trauma reported. Reports severe, constant, sharp shoulder pain, 10/10, worse w/ movement. No other injuries reported. On arrival, BP 109/67, HR 81, O2 sat 99% on RA, Afebrile. WBC 12.5. Chemistry essentially unremarkable except for GFR 86. INR 1.0. CT Head negative. CT C- spine with no acute fracture. Humerus X-ray oblique, aggravated fracture proximal humerus. Dr. Reina consulted by ER physician, plan is for surgical intervention. CBC/BMP: 08/26/17 0913 08/26/17 0913 Significant Findings Laboratory Tests Test 08/25/17 02:40 08/26/17 09:13 White Blood Count 12.5 TH/MM3 (4.0-11.0) 14.0 TH/MM3 (4.0-11.0) Neutrophils (%) (Auto) 73.4 % (16.0-70.0) 80.1 % (16.0-70.0) Neutrophils # (Auto) 9.1 TH/MM3 (1.8-7.7) 11.2 TH/MM3 (1.8-7.7) Platelet Morphology Comment ENLARGED (NORMAL) Activated Partial Thromboplast Time 21.2 SEC (24.3-30.1) Random Glucose 128 MG/DL (74-106) 71 MG/DL (74-106) Estimat Glomerular Filtration Rate 86 ML/MIN (>89) Monocytes (%) (Auto) 8.2 % (0.0-8.0) Monocytes # (Auto) 1.1 TH/MM3 (0-0.9) Albumin 3.2 GM/DL (3.4-5.0) Calcium Level 8.4 MG/DL (8.5-10.1) Imaging Last Impressions Shoulder X-Ray 08/25/17 0000 Signed Impressions: Service Date/Time: Friday, August 25, 2017 02:07 - CONCLUSION: Angulated fracture of proximal shaft of the humerus. Jeremías Ramirez MD Humerus X-Ray 08/25/17 0000 Signed Impressions: Service Date/Time: Friday, August 25, 2017 02:10 - CONCLUSION: Oblique, angulated fracture of the proximal humerus. Jeremías Ramirez MD Head CT 08/25/17 0000 Signed Impressions: Service Date/Time: Friday, August 25, 2017 02:01 - CONCLUSION: 1. No acute findings in the brain. Jeremías Ramirez MD Cervical Spine CT 08/25/17 0000 Signed Impressions: Service Date/Time: Friday, August 25, 2017 02:01 - CONCLUSION: 1. No evidence of compression deformity or spondylolisthesis. 2. Advanced discogenic degenerative changes at C6-7 and unilateral prominent hypertrophic changes in the right facets of mid and lower cervical spine. 3. Tonsillolith on the right side suggest chronic inflammatory process. Jeremías Ramirez MD Hospital Course Patient reports heavy drinking on the night of admission. CT head, cervical spine negative for acute findings. Patient found to have left minimally displaced humerus fracture on x-ray. Patient's pain was managed with narcotics with improvement. Orthopedics was consulted, recommends nonsurgical management , discharge home to follow-up as outpatient. For problem based summary from most recent progress note, please see below. //Fall: s/p fall this evening, pt cannot recall events, but she denies loss of consciousness. CT Head w/ no acute findings, CT C-Spine negative for acute fracture, images reviewed by me. She reports drinking the night of fall. // Left Prox Humerus Fx: X-ray w/ oblique, angulated left proximal humerus fracture, images reviewed by me. Dr. Reina consulted, plan is for surgical intervention. NPO, IVF, analgesics/antiemetics as needed. Pre-op labs reviewed by me, essentially unremarkable. = Nonsurgical intervention as per orthopedics. Pending PT and OT evaluation. Discussed with nursing, nurse manager chinese at [facility]. // Dehydration: GFR 86. IVF for hydration, check U/a, repeat labs in am. Improved. //Tobacco Abuse: Pt counselled. NicoDerm prn if needed. //Leukocytosis of 14. Likely secondary to pain. No signs of infection. // DVT Prophylaxis: Anticoagulation postop Discharge Planning Discharge home. Follow-up with orthopedics as outpatient. Pt Condition on Discharge: Good Discharge Disposition: Discharge Home Discharge Time: > 30 minutes Discharge Instructions DIET: Follow Instructions for: Heart Healthy Diet Activities you can perform: Weight Bearing as Anna, See Additionl Instruction Other Activity Instructions: Do not use left arm at all. keep in sling. You will need supervision at home at all times. Follow up Referrals: Orthopedics - 1 Week @ [facility] with Servando Foley MD New Medications: Hydrocodone-Acetaminophen (Hydrocodone-Acetaminophen) 10-325 mg Tab 1 TAB PO Q4H PRN for PAIN, #60 TAB 0 Refills Daniele Herrera MD Aug 26, 2017 15:27
[2017-08-26 15:49] VITALS: BP 136/77; PULSE 80; RESP 17; TEMP 96.5; O2SAT 97
[2017-08-26] MEDS ORDERED: PRAVASTATIN SOD 40 MG TAB PO SCH (21:00)
== END 2017-08-26 16:56 | disposition home or self-care (01) | DRG 563 ==
LOC: NEPC 01:20 → NEDA 03:57 → NEPGCP 05:22 → N06B 21:52
PROVIDERS: ADMIT Internal Medicine; ATTEND Internal Medicine
DX: S42.332A Displaced oblique fracture of shaft of humerus, left arm, initial encounter for closed fracture (principal); E78.5 Hyperlipidemia, unspecified; E86.0 Dehydration; F17.210 Nicotine dependence, cigarettes, uncomplicated; W18.30XA Fall on same level, unspecified, initial encounter; D72.829 Elevated white blood cell count, unspecified; Z23 Encounter for immunization
CPT/HCPCS: 70450; 72125; 73030; 73060; 80048; 80053; 85025; 85610; 85730; 90732; 93005; 96361; 96374; 96376; J2270; J2405; J7030